=== PATIENT | male | born 1995 | race Caucasian/White ===

== ENCOUNTER 2021-10-25 16:01 | Emergency (ER) | payer OTHER ==
[~2021-10-25 16:01] MED LIST: BACTROBAN NASAL1 G1 TOP; FELDENE10 MG PO; FLEXERIL 10 MG10 MG PO; KEFLEX CAP 500500 MG PO
[2021-10-25 17:20] LABS: RED BLOOD COUNT 4.67 M/UL (4.20-5.50); WHITE BLOOD COUNT 10.4 K/UL (4.5-11.0)
[2021-10-25 17:40] LABS: BUN/CREATININE RATIO 19 (0-10)
== END 2021-10-25 18:27 | disposition left against medical advice (07) ==
LOC: ER1 16:01
PROVIDERS: Physician Assistant; Preventive Medicine Occupational Medicine
DX: T40.411A Poisoning by fentanyl or fentanyl analogs, accidental (unintentional), initial encounter (principal); F15.10 Other stimulant abuse, uncomplicated; F13.10 Sedative, hypnotic or anxiolytic abuse, uncomplicated; F12.10 Cannabis abuse, uncomplicated; F11.10 Opioid abuse, uncomplicated; F17.200 Nicotine dependence, unspecified, uncomplicated
CPT/HCPCS: 80053; 80307; 81001; 82550; 82553; 83874; 84484; 85025; 87086; 93005; 99284